=== PATIENT | male | born 1990 | race Caucasian/White ===

== ENCOUNTER 2021-12-09 10:39 | Outpatient (CLI) | payer OTHER, SELFPAY ==
[2021-12-09 14:41] LABS: Chloride* 106 mmol/L (96-114); Sodium* 139 mmol/L (135-149)
[2021-12-09 14:42] LABS: Potassium* 4.4 mmol/L (3.6-5.1)
[2021-12-09 14:44] LABS: Carbon Dioxide* 25 mmol/L (20-32); Cholesterol* 175 mg/dL (90-199); Creatinine* 1.4 mg/dL (0.5-1.5); Estimated Glomerular Filt Rate 68 ml/min
[2021-12-09 14:45] LABS: Blood Urea Nitrogen* 20 mg/dL (5-24); Calcium* 9.1 mg/dL (8.4-10.6); Glucose* 79 mg/dL (60-115); HDL Cholesterol* 46 mg/dL (>=40); LDL Cholesterol Calculated 115 mg/dL (<100); Triglycerides* 72 mg/dL (40-149)
== END 2021-12-09 10:40 | disposition home or self-care (01) ==
PROVIDERS: Visit Provider Family Medicine
DX: Z00.00 Encounter for general adult medical examination without abnormal findings (principal); Z13.6 Encounter for screening for cardiovascular disorders
CPT/HCPCS: 80048; 80061

== ENCOUNTER 2022-02-24 17:45 | Emergency (ER) | payer OTHER, SELFPAY ==
[2022-02-24 17:54] VITALS: BP 121/72; PULSE 85; TEMP 37; O2SAT 97; BMI 26.5
--- NOTE | 2022-02-24 18:08 | ED_ITS ---
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 He feels chilled feverish, no temperature noted this evening however O2 sat is excellent at 97%. He has had no chronic respiratory issues such as asthma, no chest pain no breathing problem. He feels congested in his nose S cough, no skin rashes, no nuchal rigidity. 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 is concerned he may have brought some infection type home Related Data Home Medications Medication Instructions Recorded Confirmed No Known Home Medications 02/24/22 02/24/22 Allergies Allergy/AdvReac Type Severity Reaction Status Date / Time seasonal Allergy Mild Sneezing, Uncoded 01/01/22 08:11 Watery eyes [facility]SH [facility] Medical History (Updated 02/24/22 @ 18:07 by Trevor Fuchs MD) Dislocation of knee (2020) Gastroesophageal reflux disease History of colonic polyps (02/27/14) Surgical History (Updated 12/13/21 @ 22:07 by Juan F Miranda MD) History of laser assisted in situ keratomileusis History of third molar tooth extraction Family History (Updated 12/08/21 @ 12:09 by Heike Corea) Mother Colon cancer Uncle Colon cancer Father Diabetes Social History (Updated 12/08/21 @ 12:10 by Heike Corea) Narrative: 3 children Owns his own [employer] business Non smoker Does not do illicit drugs Alcohol ingestion, 1-4 drinks/week Smoking Status: Never smoker Do you use any of these nicotine containing products: None Second hand tobacco smoke exposure: No How often do you have a drink containing alcohol: monthly or less How many standard drinks containing alcohol do you have on a typical day: 1 or 2 How often do you have six or more drinks on one occasion: Never AUDIT-C Alcohol total score: 1 Non-prescribed substance use: denies use Little interest or pleasure in doing things: not at all Feeling down, depressed, or hopeless: not at all Exam Narrative: Exam Narrative: Objective: Patient is no apparent distress has a some crusty rhinorrhea Lungs are clear neck is supple Heart rhythm without murmur Extremities are no edema, neurologic nonfocal, no nuchal rigidity, no skin rashes reported Const: Vital Signs, click to edit/add: Vital Signs - 24 hr 02/24/22 17:54 02/24/22 18:12 Temperature 98.6 F Pulse Rate [Right Pulse Oximeter] 85 90 Blood Pressure [Ri ght Upper Arm] 121/72 Pulse Oximetry 97 98 Oxygen Delivery Me thod Room Air Room Air Course Vital Signs Vital signs: Initial Vital Signs Temperature 98.6 F 02/24/22 17:54 Temperature Source Temporal Artery Scan 02/24/22 17:54 Pulse Rate 85 02/24/22 17:54 Blood Pressure 121/72 02/24/22 17:54 Blood Pressure Mean 88 02/24/22 17:54 Blood Pressure Position Sitting 02/24/22 17:54 Pulse Oximetry 97 02/24/22 17:54 Oxygen Delivery Method 02/24/22 17:54 Vital Signs Temperature 98.6 F 02/24/22 17:54 Pulse Rate 85 02/24/22 17:54 Blood Pressure 121/72 02/24/22 17:54 Pulse Oximetry 97 02/24/22 17:54 Oxygen Delivery Method 02/24/22 17:54 Temperature 98.6 F 02/24/22 17:54 Pulse Rate 90 02/24/22 18:12 Blood Pressure 121/72 02/24/22 17:54 Pulse Oximetry 98 02/24/22 18:12 Oxygen Delivery Method 02/24/22 18:12 Medical Decision Making [facility] Narrative Medical decision making narrative: Patient has symptoms of a viral syndrome, possibly influenza/COVID/RSV. My suspicion would be a is a case of RSV. Will check for the 3 infections. : Back with results, Tylenol Advil as needed, light activity for a couple of days, good fluid intake, update primary care doctor as needed, return to the ED any difficulty breathing problems concerns. Discharge Plan Discharge Clinical Impression: Acute viral syndrome Patient Disposition: Home, Self-Care Condition: Stable Additional Instructions: Rest, light activity, Tylenol Advil as needed, light activity for a couple of days, return if problems concerns difficulty. Will call with results of tests tonight Activity Level: Light activity Discharge Diet: Regular Prescriptions: No Action No Known Home Medications Follow Up/Referrals: Provider,Not a Local [Primary Care Provider] - Stand Alone Forms: [facility] Info Instructions
[2022-02-24 18:12] VITALS: PULSE 90; O2SAT 98
[2022-02-24 18:50] LABS: PCR FLU A Negative PCR FLU A (Negative); PCR FLU B Negative PCR FLU B (Negative); PCR RSV Negative PCR RSV (Negative)
[2022-02-24 19:34] LABS: SARS Antigen* negative (Negative)
[2022-02-24 19:35] LABS: SARS PCR* Negative SARS-CoV-2 (Negative)
--- NOTE | 2022-02-24 19:36 | ED.NURSE ---
Pt called with test results, all negative.
== END 2022-02-24 18:15 | disposition home or self-care (01) ==
PROVIDERS: Emergency Provider Family Medicine
DX: B34.9 Viral infection, unspecified (principal); R68.83 Chills (without fever); R09.81 Nasal congestion; R05.9 Cough, unspecified
CPT/HCPCS: 87426; 87502; 87634; 87635; 99283

== ENCOUNTER 2022-08-04 09:03 | Outpatient (CLI) | payer OTHER, SELFPAY ==
--- NOTE | 2022-08-04 09:15 | MR_ITS ---
[address] [address] Phone:?[phone] Fax:?[phone] Referring Physician Information: Francisco J Phelps [address] [facility] [address] Phone:?[phone] Fax:?[phone] Patient:?Addy Soler D.O.B:?1990 Sex:?Male Phone:?[phone] [facility] MRN:?[id number] Exam Date:?08/04/2022 ? EXAM: MRI EXAMINATION OF THE LEFT KNEE CLINICAL INFORMATION: Left knee pain. Status post injury. History of surgery. Evaluate medial and lateral meniscal tear. TECHNICAL INFORMATION: Coronal PD and STIR. Axial PD and T2 fat saturation. Sagittal PD and PD fat saturation images acquired. No prior studies for comparison. INTERPRETATION: Bones: There is a marked appearance of subchondral marrow edema signal identified involving the lateral patellar facet. There is no evidence of acute fracture. No other abnormal bone marrow edema pattern is identified. Ligaments and tendons: The medial collateral ligament is intact, without acute sprain or tear. The iliotibial band, fibular collateral ligament, biceps femoris tendon and popliteus tendon all are intact. The anterior cruciate ligament is intact without acute sprain or tear. The posterior cruciate ligament is intact. Extensor Mechanism: The patellar and quadriceps tendons are intact. The medial and lateral retinacula are intact. Knee Joint: There is a large knee joint effusion. There is a small to moderate-sized popliteal cyst which demonstrates a mild appearance of leakage. Series 8 image 19 as well as series 4 image 7 demonstrate a 1.1 x 0.8 cm chondral loose body dependently within the lateral patellofemoral joint recess. Medial Compartment: There is a meniscocapsular sprain injury involving the posterior horn medial meniscus. There is no evidence for a medial meniscal tear. No displaced flap fragment or parameniscal cyst. There is no focal chondral defect. No other significant changes of chondromalacia. Lateral Compartment: There is no evidence for discrete lateral meniscal tear. No displaced flap fragment or parameniscal cyst. There is no focal chondral defect. No other significant changes of chondromalacia. Patellofemoral articulation: Series 4 images 13 and 14 as well as series 6 image 22 demonstrates a 1.1 x 0.9 cm full-thickness chondral defect from the inferior surface of the lateral patellar facet. There is a 0.8 x 0.3 cm segment of full- thickness chondral fissuring and delamination involving the medial patellar facet. No other significant chondromalacia. CONCLUSION: 1. There is a 1.1 x 0.9 cm full-thickness chondral defect from the inferior surface of the lateral patellar facet. Marked associated reactive subchondral edema signal. 2. There is a large knee joint effusion. There is a 1.1 x 0.8 cm chondral loose body dependently within the lateral patellofemoral joint recess. 3. No evidence for a meniscal tear. There is a meniscocapsular sprain injury involving the posterior horn medial meniscus. 4. There is a small segment of full-thickness chondral fissuring and delamination involving the medial patellar facet. 5. The cruciate ligaments are intact. No other residua of a ligament injury involving the knee. KES Electronically signed on 08/04/2022 11:35:00 AM by Sammy Ahmadi M.D.
== END 2022-08-04 09:04 | disposition home or self-care (01) ==
LOC: MRI 09:04
PROVIDERS: PCP Family Medicine; Visit Provider Physician Assistant Surgical
DX: M25.562 Pain in left knee (principal); M25.462 Effusion, left knee
CPT/HCPCS: 73721

== ENCOUNTER 2023-01-11 07:46 | Emergency (ER) | payer OTHER, SELFPAY ==
[2023-01-11 07:54] VITALS: BP 135/86; PULSE 57; RESP 18; TEMP 36.4; O2SAT 97; BMI 26.5
[2023-01-11] MEDS: KETOROLAC 30 MG/ML inj IM (08:26)
[2023-01-11] MEDS: LORazepam 1 MG TABLET PO (08:26)
--- NOTE | 2023-01-11 08:45 | ED.GENADULT ---
HPI - General Adult General Date Seen: 01/11/23 Chief complaint: Neck Injury/Pain Stated complaint: neck pain,spasms Time Seen by Provider: 01/11/23 08:03 Source: patient Mode of arrival: ambulatory Limitations: no limitations History of Present Illness HPI narrative: Patient is a 33-year-old who presents with right-sided neck pain that started yesterday. It got worse throughout the day, he had difficulty sleeping overnight and by this morning he was having difficulty moving his neck. No specific trauma, he says he does work out regularly, wonders if he may have done something during a workout. He has no radiating pain, no numbness or weakness, no fevers, difficulty swallowing, severe headache etcetera. Related Data Previous Rx's Medication Instructions Recorded diazepam 10 mg tablet (Valium) 10 mg PO BID PRN #7 tabs 01/11/23 lidocaine 5 % topical patch 1 patch topical DAILY #15 ea 01/11/23 Allergies Allergy/AdvReac Type Severity Reaction Status Date / Time No Known Drug Allergies Allergy Verified 01/11/23 07:54 Review of Systems Status of ROS: Reports: 6 or more systems reviewed and unremarkable except as noted in History and below [facility] Medical History Hemorrhoids ?K64.9 - Unspecified hemorrhoids (ICD-10) Dysphagia ?R13.10 - Dysphagia, unspecified (ICD-10) Family history of colon cancer ?Z80.0 - Family history of malignant neoplasm of digestive organs (ICD-10) Foreign body reaction to tattoo dyes ?L92.3 - Foreign body granuloma of the skin and subcutaneous tissue (ICD-10) History of colonic polyps (02/27/14) ?Z86.010 - Personal history of colonic polyps (ICD-10) Gastroesophageal reflux disease ?K21.9 - Gastro-esophageal reflux disease without esophagitis (ICD-10) Dislocation of knee (2020) ?S83.106A - Unspecified dislocation of unspecified knee, initial encounter (ICD-10) Surgical History History of colonoscopy ?Z98.890 - Other specified postprocedural states (ICD-10) History of third molar tooth extraction ?K08.409 - Partial loss of teeth, unspecified cause, unspecified class (ICD-10) History of laser assisted in situ keratomileusis ?Z98.890 - Other specified postprocedural states (ICD-10) Family History Mother Colon cancer Uncle Colon cancer Father Diabetes Social History Narrative: 3 children Owns his own [employer] business Non smoker Does not do illicit drugs Alcohol ingestion, 1-4 drinks/week Smoking Status: Never smoker Do you use any of these nicotine containing products: None Second hand tobacco smoke exposure: No How often do you have a drink containing alcohol: monthly or less How many standard drinks containing alcohol do you have on a typical day: 1 or 2 How often do you have six or more drinks on one occasion: Never AUDIT-C Alcohol total score: 1 Non-prescribed substance use: denies use Little interest or pleasure in doing things: not at all Feeling down, depressed, or hopeless: not at all Exam Narrative: Exam Narrative: Vital signs as noted above. In general, an alert, well-appearing patient. He is holding his head slightly cocked to the left. Head: Normocephalic, atraumatic. Eyes: Pupils are equal reactive. Extraocular movements are full. Conjunctivae are normal. ENT: Mucous membranes are moist. Throat is normal. Neck: Range of motion is limited secondary to pain, no meningeal signs. Tenderness along the right paracervical musculature, trapezius / rhomboid. Heart: Regular rate and rhythm. No murmur or rub. Lungs: Clear bilaterally. No increased work of breathing, crackles or wheezes. Abdomen: Soft and nontender. No organomegaly. Extremities: Well perfused. No edema. No calf tenderness. Pulses intact. Neurologic: Patient is alert and oriented to person and place. Speech is fluent. Face is symmetric. Moves all extremities equally; Strength in bilateral upper extremities is 5/5, sensation is intact to light touch. Affect: Normal. Skin: Warm and dry. Well perfused. Const: Vital Signs, click to edit/add: Vital Signs - 24 hr 01/11/23 07:54 Temperature 97.6 F Pulse Rate [Pulse Oximeter] 57 L Respiratory Rate 18 Blood Pressure [Ri ght Upper Arm] 135/86 Pulse Oximetry 97 Oxygen Delivery Me thod Room Air Documenting provider has reviewed patient's vital signs: yes Course Course ED Course: Reviewed with him that I think this represents torticollis. I do not find anything on exam with history that is highly suggestive of radiculopathy. No fevers or other systemic symptoms suggesting that he needs urgent imaging. I gave him Toradol and Ativan here, discussed that he will likely take a few days for this to settle down regardless of any treatment, but we can try some Valium at night, ibuprofen/ Tylenol and lidocaine patches during the day. Discussed adjunctive measures such as Biofreeze, massage, heat, ice. Primary care follow-up if not improving over the next week or so. Return at any time for new symptoms such as weakness, numbness, fever. Vital Signs Vital signs: Initial Vital Signs Temperature 97.6 F 01/11/23 07:54 Temperature Source Temporal Artery Scan 01/11/23 07:54 Pulse Rate 57 L 01/11/23 07:54 Respiratory Rate 18 01/11/23 07:54 Blood Pressure 135/86 01/11/23 07:54 Blood Pressure Mean 102 01/11/23 07:54 Blood Pressure Position Sitting 01/11/23 07:54 Pulse Oximetry 97 01/11/23 07:54 Oxygen Delivery Method Room Air 01/11/23 07:54 Vital Signs Temperature 97.6 F 01/11/23 07:54 Pulse Rate 57 L 01/11/23 07:54 Respiratory Rate 18 01/11/23 07:54 Blood Pressure 135/86 01/11/23 07:54 Pulse Oximetry 97 01/11/23 07:54 Oxygen Delivery Method Room Air 01/11/23 07:54 Temperature 97.6 F 01/11/23 07:54 Pulse Rate 57 L 01/11/23 07:54 Respiratory Rate 18 01/11/23 07:54 Blood Pressure 135/86 01/11/23 07:54 Pulse Oximetry 97 01/11/23 07:54 Oxygen Delivery Method Room Air 01/11/23 07:54 Discharge Plan Discharge Clinical Impression: Acute torticollis Patient Disposition: Home, Self-Care Condition: Stable Instructions: Spasmodic Torticollis (ED) Additional Instructions: Ibuprofen 400 mg plus Tylenol 1000 mg 3 times daily as needed, this may help with pain. Valium at night as prescribed. You can take this during the day but is likely to be less effective and may be very sedating. Lidocaine patches may be helpful as well, other helpful modalities include heat/ice, massage, topical products such as Biofreeze. regardless of treatment will likely take at least a few days for this to settle down. If no better in a week, follow-up with primary care. Return at any time for new symptoms such as fever, weakness, numbness. Prescriptions: New diazepam [Valium] 10 mg tablet 10 mg PO BID PRNQty: 7 0RF lidocaine 5 % adhesive patch,medicated 1 patch topical DAILY Qty: 15 0RF Rx Instructions: leave on most painful area for up to 12 hrs Follow Up/Referrals: Eliud Rogers MD [Primary Care Provider] - Stand Alone Forms: [employer] Info Instructions
== END 2023-01-11 09:03 | disposition home or self-care (01) ==
PROVIDERS: Emergency Provider Emergency Medicine; PCP Family Medicine
DX: M43.6 Torticollis (principal)
CPT/HCPCS: 96372; 99283; 99284; A9270; J1885

== ENCOUNTER 2023-01-21 09:07 | Outpatient (CLI) | payer OTHER, SELFPAY ==
--- NOTE | 2023-01-21 09:15 | CRLHL7_ITS ---
For Patients: As a result of the Century Cures Act, medical imaging exams and procedure reports are released immediately into your electronic medical record. You may view this report before your referring provider. If you have questions, please contact your health care provider. Technique: Double-contrast esophagram performed after the uneventful administration of effervescent crystals and thick barium followed by thin barium. Multiple cine clips obtained. Fluoroscopy time 2 minutes 36 second. Indication: ESOPHAGEAL DYSPHAGIA Comparison: None. Findings: On the initial upright images, narrowing of the distal esophagus noted. However, this narrowing improved in the supine position with thin barium. Subsequently, 13 millimeter barium tablet administered in the upright position and this passed normally through the distal esophagus into the stomach. Additional upright thick barium images demonstrate mild narrowing of the distal esophagus without obstruction. Mild distention of distal esophagus noted without esophageal mucosal abnormality. No ulcer. Normal swallowing mechanism. No spontaneous reflux. No tertiary contractions. No hernia. Impression: Mild narrowing of the distal esophagus. However, 13 millimeter barium tablet passed through this region. More prominent narrowing of the distal esophagus was present on the initial images in the upright position with thick barium which improved after changes in position. Dictated by Juan F Gleason MD @ 01/21/2023 10:47:27 AM (Electronically Signed)
== END 2023-01-21 09:08 | disposition home or self-care (01) ==
LOC: RAD 09:08
PROVIDERS: PCP Family Medicine; Visit Provider Internal Medicine Gastroenterology
DX: R13.19 Other dysphagia (principal)
CPT/HCPCS: 74221

== ENCOUNTER 2024-10-18 08:20 | Outpatient (CLI) | payer OTHER, SELFPAY | END 2024-10-18 08:21 | disposition home or self-care (01) | PROVIDERS: PCP Family Medicine; Referring Provider Family Medicine; Visit Provider Family Medicine | DX: Z00.00 Encounter for general adult medical examination without abnormal findings (principal); K64.9 Unspecified hemorrhoids; K21.9 Gastro-esophageal reflux disease without esophagitis; Z80.0 Family history of malignant neoplasm of digestive organs | CPT/HCPCS: 80048; 80061 ==